=== PATIENT | female | born 2000 | race Caucasian/White ===

== ENCOUNTER 2023-10-09 00:49 | Emergency (ER) | payer BC, SELFPAY ==
[2023-10-09 00:50] VITALS: BP 170/110
[2023-10-09 01:10] VITALS: BP 132/90
--- NOTE | 2023-10-09 01:12 | ED.GENMED ---
History of Present Illness
General
Chief Complaint: Chest Pain
Source: patient
Exam Limitations: none
Time Seen by Provider: 10/09/23 00:56
Travel History
Have you had any contact with someone who has COVID-19?: No
Do you have any symptoms of coronavirus? Fever > 100 degrees, chills, cough, shortness of breath, sore throat, loss of taste or smell, muscle aches, or headache?: No
History of Present Illness
History of Present Illness:
This is a 23 year old female that comes in with c/o chest pain. State that she started around 6:30 with pain in the arm pit. States that this lasted for about 30-45 min and she took an Aspirin. State that the pain went away and she then watched a
move. States that he left arm started to feel weird and she started to feel SOB. State that she then was googling and this got her nervous. State that the pain came back in the armpit and left upper chest so she took a second Aspirin. States that
at this time she is pain free. States that she was a little nauseated and felt lightheaded. Denies any fever, chills, abd pain, vomiting, diarrhea, headache, dizziness, urinary burning.
Past History
Past History
ED Past Medical History: Other (Hypertrophic cardiomyopathy, PCOS, ADHD )
ED Past Surgical History: None
Social History
Tobacco: Non-smoker
Alcohol: Occasional
Personal: Single
Living: alone
Review of Systems
Review of Systems
All Other Systems: ROS reviewed and negative except as documented in HPI and ROS
Constitutional: Reports no symptoms; Denies fever or chills
EENT: Reports no symptoms
Respiratory: Reports trouble breathing; Denies cough
Cardiac: Reports chest pain
ABD/GI: Reports nausea; Denies abdominal pain, vomiting or diarrhea
: Reports no symptoms; Denies dysuria, frequency or urgency
Musculoskeletal: Reports no symptoms
Skin: Reports no symptoms
Neurological: Reports other (Lightheaded); Denies dizzy or headache
Psychiatric: Reports no symptoms
Phy Exam
General Physical Exam
General Presentation: well appearing and no apparent distress
General age: appears stated age
General Skin: warm and dry
General Habitus: normal
General Mental: alert
General Hydration: appears well hydrated
ENT Exam
ENT Exam: TM's normal, pharynx normal and neck supple
Eye Exam
Eye Exam: EOMI
Cardiovascular Exam
Cardiovascular Exam: regular rate/rhythm, no edema, no murmur and normal peripheral pulses
Pulmonary Exam
Pulmonary Exam: lungs clear, no respiratory distress, no rales, chest non tender, no crackles, no wheezing and no cough
Gastrointestinal Exam
Gastrointestinal Exam: normal bowel sounds, non tender, soft, no organomegaly, no pulsatile mass, non distended and other (Obese)
Musculoskeletal Exam
Musculoskeletal Exam: full ROM and no edema
Skin Exam
Skin Exam: normal color, warm/dry, no rash and no petechia
Psychiatric Exam
Psychiatric Exam: normal mood/affect
Scores
Heart Score for Chest Pain Patients
STEMI patient?: No
History: Slightly or Non-Suspicious
ECG: Normal
Age: </= 45 years
Risk Factors: No Risk Factors
Troponin: </= Normal Limit
Heart Score for Chest Pain Patients: 0
Heart Score Risk: 2.5% MACE over next 6 weeks
Course
Orders/Labs/Results
Orders:
Orders
10/09/23 00:55
Electrocardiogram (*1) Urgent
Reason for Study: Chest Pain
EKG- Treatment ONCE
10/09/23 01:12
Test Result ONCE
CR Chest - 2 Views Urgent
Comment:
Reason For Exam: Chest pain, SOB
10/09/23 01:29
Complete Blood Count/With Diff Urgent
Comprehensive Metabolic Panel Urgent
HCG, Serum Qualitative Screen Urgent
Troponin I Urgent
10/09/23 04:30
Electrocardiogram (*1) Urgent
Reason for Study: Chest Pain
Other Reason for Exam: Repeat with Troponin
EKG- Treatment ONCE
Troponin I Urgent
Abnormal Lab Results
10/09/23
01:29
MCV 78.2 L fL
(81.0-99.0)
Glucose 104 H mg/dl
(70-99)
10/09/23 01:29
10/09/23 01:29
Glucose nonfasting. Troponin <0.012, HCG negative
Vital Signs
Initial and Last Documented VS:
Initial Vital Signs
Temp Pulse Resp BP Pulse Ox
97.6 F 112 24 170/110 100
10/09/23 00:50 10/09/23 00:50 10/09/23 00:50 10/09/23 00:50 10/09/23 00:50
Last Documented Vital Signs
Temp Pulse Resp BP Pulse Ox
97.6 F 67 18 130/74 97
10/09/23 00:50 10/09/23 03:00 10/09/23 03:00 10/09/23 03:00 10/09/23 03:00
MDM/Problems Addressed
Differential Diagnosis Includes:
Anxiety, Acute coronary syndrome
MDM/Problems Addressed:
This is a 23 year old female that comes in with c/o left sided chest pain. States that around 6:30pm she started with pain in the left armpit. State that this lasted for about 30-45min so she took an Aspirin. States that the pain went away. States
that she watched a move and then her left arm started to feel weird and she started to [employer]. States that she got nervous and the pain came back. States that she felt SOB and was burping a lot. States that she took a Second Aspirin.
Will get labs and chest X-ray, ECG.
Back into see patient. Explained that her blood work and Troponin are normal. Chest x-ray is normal. Will repeat Troponin at 4:30am and if normal will discharge patient. Patient to follow up with the Her moisture machine tender for further evaluation. Patient
to return with any concerns.
Chronic conditions affecting care:
Hypertrophic cardiomyopathy
Acute Exacerbation and/or Progression of Chronic Illness:
NA
*Radiology
Radiology exam reviewed: preliminary read by ED provider (Chest- negative for active disease. )
*Pulse Oximetry
Patient hypoxic: no
*EKG
Interpreted by ED Provider?: Yes
Heart Rate: 91
Rate: normal
Rhythm: sinus arrhythmia
[place]: normal axis
Interval: normal interval
QRS Pattern: normal QRS
Ischemia: no ischemia (Checked by Dr. Dean )
*Customer Service Dispatcher Interpretation
Rate: normal
Heart Rate: 97
Rhythm: sinus
*Critical Care Note
Total Time (30-74mins, 75-104mins- exclusive of procedures): Not Applicable
ED Attending Note
-
Portions of this chart may have been created with voice recognition software.� Occasional wrong word or��sound alike� substitutions may have occurred due to the inherent limitations of voice recognition software.
Discharge Plan
Departure
Patient Disposition: Home (Routine Discharge)
Date of Disposition: 10/09/23
Time of Disposition: 02:50
Patient with high blood pressure during this ER visit?: Yes
Condition: Good
Covid-19: Not Applicable
Discharge Problem:
Chest pain
Instructions: Chest Pain NON-[facility] Bricklayer'S Assistant Follow Up, BLOOD PRESSURE
Prescriptions:
No Action
metformin 500 mg Tablet
500 mg PO DAILY
methylphenidate HCl [Concerta] 27 mg Tablet Extended Release 24hr
27 mg PO DAILY
Referrals:
Kym Trimble MD [Family Provider] - Follow up in 2-3 days
Activity Restrictions/Additional Instructions:
As discussed, your blood work and chest x-ray are normal. Please follow up with your Bricklayer'S Assistant for further evaluation. There may be a little anxiety that is causing your discomfort. IF YOU HAVE INCREASED OR CHANGING CHEST PAIN, OR YOU HAVE ANY
OTHER CONCERNS PLEASE RETURN TO THE EMERGENCY ROOM
Interventions
Interventions:
*Risk Screen - Suicide Last Done: 10/09/23 00:50
*General Assessment Last Done: 10/09/23 01:17
*Neglect/Abuse Screening Last Done: 10/09/23 00:50
ED- Fall Risk Assessment Last Done: 10/09/23 01:34
*ED COVID-19 Vaccine History Last Done: 10/09/23 01:17
ED- Cardiac Assessment Last Done: 10/09/23 01:34
[2023-10-09 01:16] VITALS: BMI 42.0
--- NOTE | 2023-10-09 01:18 | EDRN ---
Pt says she has had L side chest pain so she took an aspirin and pain went away but returned. Pt burping more than usual and adds she developed L arm pain. Pt also getting dizzy 'not feeling like myself.' Pt took another aspirin a little after
midnight for total of 650mg aspirin. L arm pain is now 'more numbness than pain, better than it was.' Burping continues and pt feels her stomach is getting more upset. 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
cardiomyopathy. Pt feels 'a little' sob. Nausea, no vomiting. No fever/chills/cough, diaphoresis.
[2023-10-09 01:38] LABS: % Basophils 0.4 % (0-2); % Eosinophils 3.2 % (0-6); % Immature Granulocytes 0.2 % (0-0.5); % Lymphocytes 29.5 % (20.5-51.1); % Monocytes 6.8 % (1.7-9.3); % Neutrophils 59.9 % (42.2-75.2); Absolute Eosinophils 0.3 10^3/uL (0-0.7); Absolute Lymphocytes 2.8 10^3/uL (1.2-3.4); Absolute Monocytes 0.6 10^3/uL (0.1-0.6); Absolute Neutrophils 5.6 10^3/uL (1.4-6.5); Hemoglobin 13.4 g/dL (12.0-16.0); Mean Corp Hgb Conc. 35.3 g/dL (33.0-37.0); Mean Corpuscular Hgb 27.6 pg (27.0-31.0); Mean Corpuscular Volume 78.2 fL (81.0-99.0); Mean Platelet Volume 9.1 fL (7.4-10.4); Nucleated Red Blood Cells % 0 %; Platelet Count 311 10^3/uL (130-400); Red Blood Cell Count 4.86 10^6/uL (4.20-5.40); Red Cell Dist. Width 12.3 % (11.5-14.5); White Blood Cell Count 9.4 10^3/uL (4.8-10.8)
[2023-10-09 01:49] LABS: HCG, Serum Qualitative Screen Negative
[2023-10-09 01:53] LABS: ALT (SGPT) 19 U/L (0-35); AST (SGOT) 22 U/L (14-36); Alkaline Phosphatase 73 U/L (38-126); Blood Urea Nitrogen 14 mg/dl (7-17); Calcium 9.2 mg/dl (8.4-10.2); Carbon Dioxide 24 mmol/L (22-30); Chloride 105 mmol/L (98-107); Estimated Creatinine Clearance > 125 ml/min; Glucose 104 mg/dl (70-99); Potassium 3.5 mmol/L (3.5-5.1); Sodium 136 mmol/L (135-145); Total Bilirubin 0.4 mg/dl (0.2-1.3); Total Protein 6.4 g/dl (6.3-8.2); eGFR > 60.00
[2023-10-09 02:06] LABS: Troponin I < 0.012 ng/ml
[2023-10-09 03:00] VITALS: BP 130/74
[2023-10-09 05:11] VITALS: BP 123/67
[2023-10-09 05:13] LABS: Troponin I < 0.012 ng/ml
== END 2023-10-09 05:30 | disposition home or self-care (01) ==
LOC: EMR 00:49
PROVIDERS: Clinical Nurse Specialist Family Health; EMERGENCY PHYSICIAN Emergency Medicine; FAMILY PHYSICIAN Family Medicine
DX: R07.89 Other chest pain (principal); R06.02 Shortness of breath; R42 Dizziness and giddiness; R11.0 Nausea; R03.0 Elevated blood-pressure reading, without diagnosis of hypertension; M79.602 Pain in left arm; I42.2 Other hypertrophic cardiomyopathy
CPT/HCPCS: 99285; 71046; 80053; 84484; 84703; 85025; 93005